=== PATIENT | female | born 1985 | race Hispanic/Latino ===

== ENCOUNTER 2022-09-06 11:15 | Emergency (ER) | payer MEDICAID ==
[~2022-09-06] VITALS: Ht 157.5 cm; Wt 90.7 kg
[2022-09-06 11:20] VITALS: BP 125/63
== END 2022-09-06 12:04 | disposition left against medical advice (07) ==
LOC: EDH 11:15
DX: R10.9 Unspecified abdominal pain (principal); Z53.21 Procedure and treatment not carried out due to patient leaving prior to being seen by health care provider